=== PATIENT | male | born 1995 | race Asian ===

== ENCOUNTER 2023-09-05 22:27 | Emergency (ER) | payer OTHER, SELFPAY ==
[2023-09-05 22:28] VITALS: BMI 37.6
[2023-09-05 22:30] VITALS: BP 133/56
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
== END 2023-09-06 00:18 ==
LOC: EMR 22:27
PROVIDERS: EMERGENCY PHYSICIAN Student in an Organized Health Care Education/Training Program
DX: S01.511A Laceration without foreign body of lip, initial encounter (principal); S02.5XXA Fracture of tooth (traumatic), initial encounter for closed fracture; W22.03XA Walked into furniture, initial encounter; Z87.891 Personal history of nicotine dependence; I10 Essential (primary) hypertension
CPT/HCPCS: 99284; 70450